=== PATIENT | female | born 1950 | race Caucasian/White ===

== ENCOUNTER 2020-01-26 05:39 | Day surgery (SDC) | payer MEDICARE ==
[2020-01-25 10:47] VITALS: BMI 30.7
[2020-01-26] MEDS ORDERED: Phenylephrine 2.5% Ophth Soln 5 ML BOT ONE (06:06)
[2020-01-26] MEDS ORDERED: Cyclopentolate 1% Opth Drop 2 ML BOT ONE (06:06)
[2020-01-26] MEDS ORDERED: EPINEPHrine 0.3 MG in Ophthalmic Irrigation Solution 500 ML IRR SCH (06:09)
[2020-01-26] MEDS ORDERED: Fentanyl 100 MCG/2 ML VIAL ONE (06:35)
[2020-01-26] MEDS ORDERED: PROPOFOL 20 ML ONE (06:35)
[2020-01-26] MEDS ORDERED: Midazolam HCl 2 mg/2 ml Vial ONE (06:35)
--- NOTE | 2020-01-26 08:48 | OP ---
DATE OF PROCEDURE: 01/26/2020 PRINCIPAL AND PREOPERATIVE DIAGNOSIS: Macular hole, right eye. POSTOPERATIVE DIAGNOSIS: Macular hole, right eye. PROCEDURES PERFORMED: 1. A 25-gauge pars plana vitrectomy, right eye. 2. Internal limiting membrane peel, right eye. 3. 15% SF6 fill, right eye. ESTIMATED BLOOD LOSS: None. SPECIMENS REMOVED: None. COMPLICATIONS: None. ANESTHESIA: MAC with subtenon's block. DESCRIPTION OF PROCEDURE: The patient was identified in the preoperative holding area. The correct eye being the right eye was marked for surgery. The patient was taken to the operating room, where MAC anesthesia was induced. The right eye was prepped and draped in the usual sterile ophthalmic fashion for surgery. A wire-clip lid speculum was placed. An inferonasal conjunctival peritomy was fashioned with Gabriele scissors for administration of subtenon's block. The block consisted of 1:1 ratio of 4% lidocaine and 0.75% Marcaine. A total of 5 mL was administered. A standard 25-gauge pars plana vitrectomy platform was fashioned with trocars placed approximately 3.5 mm from the limbus. The infusion was noted to be within the vitreous cavity prior to being turned on to an infusion pressure of 30 mmHg. The light pipe and microvitrector were introduced in the eye under visualization of the BIOM viewing system. A careful core vitrectomy was performed followed by injection of Kenalog. A subsequent gentle posterior vitreous detachment was created followed by completion of peripheral shave vitrectomy. Following vitrectomy, ICG dye was used to stain the internal limiting membrane. Using the Vitaly ILM forceps, the internal limiting membrane was peeled in a circumferential fashion about the fovea. The peel extended approximately 2 disk diameters in radius circumferentially. Following peeling, the microvitrector was reintroduced in the eye to remove any residual vitreous debris. An air-fluid exchange was performed followed by an air-gas exchange with 15% SF6. The cannulas were sequentially removed with suturing required of the supratemporal sclerotomy with 8-0 Vicryl suture. Following suturing, all sclerotomies were noted to be gas tight. Subconjunctival Ancef and Kenalog were injected. The wire-clip lid speculum was removed followed by application of TobraDex ophthalmic ointment and a light patch and shield. The patient tolerated the procedure well and was taken to outpatient recovery area in good condition. Job ID: [id number]
[2020-01-26] MEDS ORDERED: Indocyanine Green 25 MG/10 ML VIAL ONE (11:24)
[2020-01-26] MEDS ORDERED: CEFAZOLIN 1 GM VIAL ONE (11:24)
[2020-01-26] MEDS ORDERED: Maxitrol 0.1% Opth Oint 3.5 GM TUBE ONE (11:24)
[2020-01-26] MEDS ORDERED: Lidocaine 4% PF 5 ML AMP ONE (11:24)
[2020-01-26] MEDS ORDERED: Bupivacaine PF 0.75% SDV 10 ML ONE (11:24)
[2020-01-26] MEDS ORDERED: Triamcinolone 40 MG/ML VIAL ONE (11:24)
[2020-01-26] MEDS ORDERED: Lidocaine 1% PF 5 ML VIAL ONE (11:24)
== END 2020-01-26 09:14 | disposition home or self-care (01) ==
LOC: SDC 05:39
PROVIDERS: ATTEND Ophthalmology Retina Specialist
PROC: 08T43ZZ Resection of Right Vitreous, Percutaneous Approach (ICD-10-PCS; principal; 2020-01-26)
PROC: 08NE3ZZ Release Right Retina, Percutaneous Approach (ICD-10-PCS; 2020-01-26)
DX: H35.341 Macular cyst, hole, or pseudohole, right eye (principal); Z79.1 Long term (current) use of non-steroidal anti-inflammatories (NSAID); Z79.899 Other long term (current) drug therapy
CPT/HCPCS: 67042; J0171; J2250; J2704; J3010; 67025; J0690; J2001; J3301; J3490

== ENCOUNTER 2020-02-18 06:30 | Outpatient (CLI) | payer MEDICARE, OTHER ==
[2020-02-19 10:40] LABS: SARS-CoV-2 MS2 Positive; SARS-CoV-2 N Gene Negative; SARS-CoV-2 S Gene Negative; SARS-CoV-2 orf1ab Negative
== END 2020-02-18 06:31 | disposition home or self-care (01) ==
LOC: LABBT 06:30
PROVIDERS: ATTEND Ophthalmology Retina Specialist
DX: Z01.812 Encounter for preprocedural laboratory examination (principal); Z11.59 Encounter for screening for other viral diseases
CPT/HCPCS: 87635; U0003

== ENCOUNTER 2020-02-23 07:19 | Day surgery (SDC) | payer MEDICARE ==
[2020-02-18 12:57] VITALS: BMI 31.1
[2020-02-23] MEDS ORDERED: EPINEPHrine 0.3 MG in Ophthalmic Irrigation Solution 500 ML IRR SCH (07:39)
[2020-02-23] MEDS ORDERED: Cyclopentolate 1% Opth Drop 2 ML BOT ONE (07:53)
[2020-02-23] MEDS ORDERED: Phenylephrine 2.5% Ophth Soln 5 ML BOT ONE (07:53)
[2020-02-23] MEDS ORDERED: Fentanyl 100 MCG/2 ML VIAL ONE (08:47)
[2020-02-23] MEDS ORDERED: Midazolam HCl 2 mg/2 ml Vial ONE (08:47)
--- NOTE | 2020-02-23 11:08 | OP ---
DATE OF PROCEDURE: 02/23/2020 PREOPERATIVE DIAGNOSIS: Macular hole, right eye. POSTOPERATIVE DIAGNOSIS: Macular hole, right eye. PROCEDURES PERFORMED: 1. 25-gauge pars plana vitrectomy, right eye. 2. Internal limiting membrane peel, right eye. 3. 15% C3F8 gas fill, right eye. ESTIMATED BLOOD LOSS: None. SPECIMENS REMOVED: None. COMPLICATIONS: None. ANESTHESIA: MAC with sub-Tenon block. SUMMARY OF OPERATION: The patient was identified in the preoperative holding area, where the correct eye being the right eye was marked for surgery. The patient was taken to the operating room, where MAC anesthesia was induced. The right eye was prepped and draped in the usual sterile ophthalmic fashion for surgery. A wire-clip lid speculum was placed. An inferonasal conjunctival peritomy was fashioned with Gabriele scissors for administration of sub-Tenon block. The block consisted of 1:1 ratio of 4% lidocaine and 0.75% Marcaine. A total of 5 mL was administered. A standard 25-gauge pars plana vitrectomy platform was fashioned with trocars placed approximately 3.5 mm from the limbus. The infusion was noted to be within the vitreous cavity prior to being turned on to an infusion pressure of 30 mmHg. The light pipe and microvitrector were introduced in the eye under visualization of the BIOM viewing system. A limited peripheral shave vitrectomy was performed in this previously vitrectomized eye. Following vitrectomy, ICG dye was used to stain the internal limiting membrane. Using the Vitaly ILM forceps, a large area of internal limiting membrane was already noted to be peeled. This peel was extended up just past the supra and inferotemporal arcade vessels. Following peeling, the microvitrector was reintroduced in the eye to remove any residual vitreous debris. An air-fluid exchange was performed followed by an air-gas exchange with 15% of C3F8. The cannulas were sequentially removed with suturing required the superotemporal sclerotomy with 8-0 Vicryl suture. Following suturing, all sclerotomies were noted to be gas tight. Subconjunctival Ancef and Kenalog were injected. The wire-clip lid speculum was removed followed by application of TobraDex ophthalmic ointment and a light patch and shield. The patient tolerated the procedure well, was taken to outpatient recovery area in good condition. Job ID: [id number]
[2020-02-23] MEDS ORDERED: Lidocaine 1% PF 5 ML VIAL ONE (12:17)
[2020-02-23] MEDS ORDERED: CEFAZOLIN 1 GM VIAL ONE (12:17)
[2020-02-23] MEDS ORDERED: Bupivacaine PF 0.75% SDV 10 ML ONE (12:17)
[2020-02-23] MEDS ORDERED: Triamcinolone 40 MG/ML VIAL ONE (12:17)
[2020-02-23] MEDS ORDERED: Lidocaine 4% PF 5 ML AMP ONE (12:17)
[2020-02-23] MEDS ORDERED: Indocyanine Green 25 MG/10 ML VIAL ONE (12:17)
[2020-02-23] MEDS ORDERED: PROPOFOL 200 MG/20 ML VIAL ONE (12:17)
[2020-02-23] MEDS ORDERED: Tobramycin/Dexamethasone Ophth Oint 3.5 GM TUBE ONE (12:17)
== END 2020-02-23 11:05 | disposition home or self-care (01) ==
LOC: SDC 07:19
PROVIDERS: ATTEND Ophthalmology Retina Specialist
PROC: 08T43ZZ Resection of Right Vitreous, Percutaneous Approach (ICD-10-PCS; principal; 2020-02-23)
PROC: 08NE3ZZ Release Right Retina, Percutaneous Approach (ICD-10-PCS; 2020-02-23)
DX: H35.341 Macular cyst, hole, or pseudohole, right eye (principal); Z79.1 Long term (current) use of non-steroidal anti-inflammatories (NSAID); Z79.899 Other long term (current) drug therapy
CPT/HCPCS: 67025; J0171; J0690; J2001; J2250; J2704; J3010; J3301; J3490